=== PATIENT | female | born 1980 | race Caucasian/White ===

== ENCOUNTER → 2023-07-29 15:33 | Outpatient (REF) | payer OTHER, SELFPAY ==
[2023-08-02 12:06] LABS: HPV, High Risk Not Detected; HPV, High Risk Source Anal
== END ==
LOC: CLAB 15:33
PROVIDERS: ATTENDING PHYSICIAN Surgery
DX: Z86.19 Personal history of other infectious and parasitic diseases (principal)
CPT/HCPCS: 87624; 88112